=== PATIENT | male | born 1980 | race Caucasian/White ===

== ENCOUNTER 2018-04-03 11:45 | Outpatient (CLI) | payer OTHER ==
--- NOTE | 2018-04-03 12:35 | RAD ---
THREE VIEWS OF THE LUMBAR SPINE: Date: 04-03-18 History: Disability evaluation. FINDINGS: There is an age indeterminate anterior wedge compression fracture of the L2 vertebral body with appro ximately 25% loss of vertebral body height anteriorly. There is anterolisthesis of L5 on S1 measuring approximately 5-6 mm. There may be pars defects at L5, not optimally assessed on this exam. IMPRESSION: 1. Age indeterminate superior endplate/anterior wedge compression fracture of L2 vertebral body. 2. Anterolisthesis of L5 on S1 measuring 5-6 mm, which may be on the basis of pars defects. Oblique i maging or CT could better assess these findings. POS: [facility]
--- NOTE | 2018-04-03 12:36 | RAD ---
TWO VIEWS RIGHT ANKLE: History: Disability evaluation. Right ankle pain. FINDINGS: AP and lateral views demonstrate old healed fracture of the distal right fibula. Plates and screws in good position. No evidence of acute fracture is seen. Some arthritic changes are seen in the posteri or aspect of the talus. IMPRESSION: No evidence of acute right ankle abnormality. POS: [facility]
== END 2018-04-03 11:46 | disposition home or self-care (01) ==
LOC: NAV RAD 11:45
PROVIDERS: ATTEND Family Medicine
DX: S82.891D Other fracture of right lower leg, subsequent encounter for closed fracture with routine healing (principal); S32.020D Wedge compression fracture of second lumbar vertebra, subsequent encounter for fracture with routine healing; M43.17 Spondylolisthesis, lumbosacral region
CPT/HCPCS: 72100